=== PATIENT | male | born 1965 | race Caucasian/White ===

== ENCOUNTER 2018-08-08 10:45 | Emergency (ER) | payer OTHER ==
[2018-08-08] MEDS: DEXAMETHASONE 10 MG/ML 1 ML INJ IM (11:40)
[2018-08-08] MEDS: KETOROLAC 30 MG INJ IM (11:41)
== END 2018-08-08 12:11 | disposition home or self-care (01) ==
LOC: FTE 10:45
DX: M54.2 Cervicalgia (principal); R51 Headache; M25.511 Pain in right shoulder; M25.512 Pain in left shoulder; E11.9 Type 2 diabetes mellitus without complications
CPT/HCPCS: 96372; 99284-25